=== PATIENT | female | born 1970 | race Caucasian/White ===

== ENCOUNTER → 2017-06-05 | Outpatient (CLI) | payer BC ==
[~2017-06-05] MED LIST: CONTRAST GIVEN MC
[2017-06-05] MEDS: IOHEXOL 300 MG/ML 100ML VIAL. PO (09:14)
== END | disposition home or self-care (01) ==
LOC: RAD 08:46
DX: E66.01 Morbid (severe) obesity due to excess calories (principal); Z68.42 Body mass index [BMI] 45.0-49.9, adult
CPT/HCPCS: 74220; 93005; Q9967